=== PATIENT | male | born 1975 | race Caucasian/White ===

== ENCOUNTER 2023-06-11 03:22 | Emergency (ER) | payer MEDICAID ==
[~2023-06-11] VITALS: Ht 182.9 cm; Wt 83.9 kg
[2023-06-11 03:45] VITALS: BP_SYST 129; PULSE 128; RESP 16; TEMP 97.6; O2SAT 96
[2023-06-11] MEDS ORDERED: ACET-2634 PO (04:49)
[2023-06-11] MEDS ORDERED: AUG875 PO (04:49)
[2023-06-11] MEDS: AMOXICILLIN/POTASSIUM CLAV 875 MG TABLET PO ONE (04:50)
[2023-06-11] MEDS ORDERED: BACITRACIN 1 GM OINT TP ONE (04:56)
[2023-06-11] MEDS: BACITRACIN ZINC 15 GM TOPICAL OINTMENT TP ONE (04:56)
[2023-06-11 05:02] VITALS: BP_SYST 118; PULSE 122; RESP 18; TEMP 98.5; O2SAT 95
== END 2023-06-11 05:02 | disposition home or self-care (01) ==
LOC: SED 03:22
DX: S62.615A Displaced fracture of proximal phalanx of left ring finger, initial encounter for closed fracture (principal); S51.851A Open bite of right forearm, initial encounter; Z79.899 Other long term (current) drug therapy; Y04.1XXA Assault by human bite, initial encounter; Y93.89 Activity, other specified; Y92.89 Other specified places as the place of occurrence of the external cause; Y99.8 Other external cause status
CPT/HCPCS: 99283